=== PATIENT | male | born 1980 | race African-American/Black ===

== ENCOUNTER 2024-10-15 16:23 | Emergency (ER) | payer SELFPAY ==
[~2024-10-15] VITALS: Ht 175.3 cm; Wt 92.5 kg
[2024-10-15 16:25] VITALS: PULSE 71; RESP 18; TEMP 98.3
[2024-10-15] MEDS ORDERED: METRONIDAZOLE500 MG PO (18:08)
[2024-10-15] MEDS ORDERED: DOXYCYCLINE HY100 MG PO (18:10)
[2024-10-15 18:41] VITALS: BP 129/92; PULSE 71; RESP 18; TEMP 98.3; O2SAT 98
== END 2024-10-15 18:28 | disposition home or self-care (01) ==
LOC: ER 17:58
DX: Z20.2 Contact with and (suspected) exposure to infections with a predominantly sexual mode of transmission (principal)
CPT/HCPCS: 99282

== ENCOUNTER 2024-12-26 10:47 | Emergency (ER) | payer SELFPAY ==
[~2024-12-26] VITALS: Ht 175.3 cm; Wt 95.3 kg
[~2024-12-26 10:47] MED LIST: DOXYCYCLINE HY100 MG PO; METRONIDAZOLE500 MG PO
[2024-12-26 11:15] VITALS: TEMP 98.2
[2024-12-26] MEDS: KETOROLAC TROMETHAMINE 30 MG/ML VIAL IM STA (12:34)
[2024-12-26] MEDS: ACETAMINOPHEN 325 MG TAB PO ONE (12:37)
[2024-12-26] MEDS: DEXAMETHASONE 4 MG TAB PO STA (12:44)
[2024-12-26 13:33] LABS: CLARITY,URINE CLOUDY (CLEAR); COLOR,URINE YELLOW (YELLOW); GLUCOSE, URINE NEGATIVE (NEGATIVE); KETONES,URINE NEGATIVE (NEGATIVE); LEUKOCYTE ESTERASE ,URINE NEGATIVE (NEGATIVE); NITRITE,URINE NEGATIVE (NEGATIVE); PH,URINE 6.5 (5 - 7); PROTEIN,URINE DIPSTICK NEGATIVE (NEGATIVE); URINE UROBILINOGEN 1 mg/dL (0.2 - 1)
[2024-12-26 13:34] LABS: BACTERIA,URINE RARE /HPF; BILIRUBIN,URINE NEGATIVE (NEGATIVE); EPITHELIAL CELLS,URINE RARE /LPF; WBC,URINE (MAN) 0-5 /HPF (0-5)
[2024-12-26 14:00] VITALS: PULSE 54; RESP 15; O2SAT 100
== END 2024-12-26 14:00 | disposition home or self-care (01) ==
LOC: ER 11:27
DX: M54.50 Low back pain, unspecified (principal); M79.605 Pain in left leg; M79.604 Pain in right leg; R10.9 Unspecified abdominal pain
CPT/HCPCS: 74176; 81001; 99283; J1885; J8540

== ENCOUNTER 2025-05-30 14:28 | Emergency (ER) | payer SELFPAY ==
[~2025-05-30] VITALS: Ht 175.3 cm; Wt 95.3 kg
[2025-05-30] MEDS: IBUPROFEN 600 MG TAB PO ONE (16:53)
[2025-05-30 17:50] LABS: STREPTOCOCCUS GRP A ANTIGEN NEGATIVE (NEGATIVE)
[2025-05-30 17:52] LABS: CORONAVIRUS COVID-19 AG NEGATIVE (NEGATIVE)
[2025-05-30 18:20] VITALS: PULSE 76; RESP 18; TEMP 97.7; O2SAT 99
== END 2025-05-30 18:27 | disposition home or self-care (01) ==
LOC: ER 16:29
DX: R51.9 Headache, unspecified (principal); B34.9 Viral infection, unspecified; Z11.52 Encounter for screening for COVID-19
CPT/HCPCS: 83518; 87070; 99284